=== PATIENT | male | born 1980 | race Caucasian/White ===

== ENCOUNTER 2017-09-03 09:25 | Emergency (ER) | payer MEDICAID ==
[~2017-09-03] VITALS: Ht 660.3 cm; Wt 80.0 kg
[2017-09-03 09:33] VITALS: BP 120/96
== END 2017-09-03 09:59 | disposition home or self-care (01) ==
LOC: ER 09:27
DX: K46.9 Unspecified abdominal hernia without obstruction or gangrene (principal)
CPT/HCPCS: 99281

== ENCOUNTER 2018-04-26 13:47 | Emergency (ER) | payer MEDICAID ==
[~2018-04-26] VITALS: Ht 188 cm; Wt 92.0 kg
[2018-04-26 14:05] VITALS: BP 150/82
== END 2018-04-26 14:52 | disposition home or self-care (01) ==
LOC: ER 13:47
DX: K40.90 Unilateral inguinal hernia, without obstruction or gangrene, not specified as recurrent (principal); G56.02 Carpal tunnel syndrome, left upper limb; Z98.890 Other specified postprocedural states
CPT/HCPCS: 99281

== ENCOUNTER 2018-07-22 22:18 | Emergency (ER) | payer MEDICAID ==
[~2018-07-22] VITALS: Ht 185.4 cm; Wt 84.4 kg
[2018-07-22 23:51] VITALS: BP 120/91
[2018-07-23] MEDS ORDERED: ketorolac trometh inj. 60 MG/2 ML VIAL IM ONE (00:15)
[2018-07-23] MEDS ORDERED: HYDROcodone/acetaminophen 5mg/325mg tablet PO ONE (00:15)
[2018-07-23] MEDS ORDERED: DICL50TA8 PO (00:17)
== END 2018-07-23 01:02 | disposition home or self-care (01) ==
LOC: ER 22:18
DX: S49.92XA Unspecified injury of left shoulder and upper arm, initial encounter (principal); Z79.899 Other long term (current) drug therapy; W22.8XXA Striking against or struck by other objects, initial encounter; Y93.64 Activity, baseball; Y92.89 Other specified places as the place of occurrence of the external cause; Y99.8 Other external cause status
CPT/HCPCS: 73030; 96372; 99283; J1885

== ENCOUNTER 2019-02-03 17:03 | Emergency (ER) | payer MEDICAID ==
[~2019-02-03] VITALS: Ht 188 cm; Wt 79.0 kg
[~2019-02-03 17:03] MED LIST: DICL50TA8 PO
[2019-02-03 17:04] VITALS: BP 136/77
[2019-02-03] MEDS ORDERED: acetaminophen 325mg tablet PO ONE (17:45)
[2019-02-03] MEDS ORDERED: PENI500T2 PO (18:52)
[2019-02-04] MEDS ORDERED: AZIT-63 PO (20:03)
[2019-02-04] MEDS ORDERED: ONDA4TAB6 PO (20:03)
[2019-02-04] MEDS ORDERED: NO HOME MEDS (22:17)
== END 2019-02-03 19:21 | disposition home or self-care (01) ==
LOC: ER 17:05
DX: J02.0 Streptococcal pharyngitis (principal); Z98.890 Other specified postprocedural states
CPT/HCPCS: 87880; 99283

== ENCOUNTER 2019-02-04 16:40 | Inpatient (IN) | payer MEDICAID ==
[~2019-02-04] VITALS: Ht 188 cm; Wt 77.8 kg
[~2019-02-04 16:40] MED LIST changes: +PENI500T2 PO
[2019-02-04 17:09] LABS: CLARITY,URINE SLIGHTLY CLOUDY (Clear); GLUCOSE, URINE NEGATIVE (Neg); KETONES,URINE 15 mg/dl (Neg); LEUKOCYTE ESTERASE ,URINE NEGATIVE (Neg); NITRITES, URINE NEGATIVE (Neg); OCCULT BLOOD,URINE NEGATIVE (Neg); PH,URINE 5.5 (4.8-8.0); PROTEIN,URINE 100 mg/dl (Neg)
[2019-02-04 17:12] LABS: COLOR,URINE DARK YELLOW (Yellow); UA COLLECTION TYPE CLN CATCH MIDSTREAM
[2019-02-04 17:22] LABS: BACTERIA,URINE FEW /HPF (Neg); MUCUS STRANDS MANY /LPF (Neg); RBC,URINE 0-2 /HPF (0-2); SQUAMOUS EPITHELIAL CELL,UR FEW /LPF (FEW); WBC,URINE 0-4 /HPF (0-4)
[2019-02-04 17:24] LABS: HYALINE CASTS 0-3 /LPF (NEGATIVE)
[2019-02-04 17:32] LABS: BASOPHILS % (AUTO) 0.2 % (0-1); EOSINOPHILS # (AUTO) 0.1 X10'3 (0-0.9); EOSINOPHILS % (AUTO) 0.3 % (0-6); HEMATOCRIT 44.1 % (42.0-52.0); HEMOGLOBIN 15.1 g/dl (14.0-17.9); LYMPHOCYTES # (AUTO) 0.6 X10'3 (1.1-4.8); LYMPHOCYTES % (AUTO) 2.5 % (21-51); MEAN CORPUSCULAR HEMOGLOBIN 32.1 PG (27.0-31.0); MEAN CORPUSCULAR HGB CONC 34.3 g/dL (33.0-36.5); MEAN CORPUSCULAR VOLUME 93.5 FL (78-98); MEAN PLATELET VOLUME 8.6 FL (7.4-10.4); MONOCYTES # (AUTO) 2.8 X10'3 (0-0.9); MONOCYTES % (AUTO) 11.4 % (2-12); NEUTROPHILS # (AUTO) 20.7 X10'3 (1.8-7.7); NEUTROPHILS % (AUTO) 85.6 % (42-75); PLATELET COUNT 213 X10'3 (140-440); RED BLOOD COUNT 4.72 X10'6 (4.70-6.10); RED CELL DISTRIBUTION WIDTH 13.2 % (11.5-14.5); WHITE BLOOD COUNT 24.2 X10'3 (4.5-11.0)
[2019-02-04 17:55] LABS: ALANINE AMINOTRANSFERASE 27 U/L (12-78); ALBUMIN 3.7 G/DL (3.4-5.0); ALBUMIN/GLOBULIN RATIO 0.9 (1.1-1.5); ALKALINE PHOSPHATASE 76 IU/L (46-116); ANION GAP 11 (8-16); ASPARTATE AMINO TRANSFERASE 17 U/L (10-37); BILIRUBIN,TOTAL 0.6 MG/DL (0.1-1.0); BLOOD UREA NITROGEN 14 MG/DL (7-18); BUN/CREATININE RATIO 13.1 (5.4-32.0); CALCIUM 9.1 MG/DL (8.5-10.1); CHLORIDE 99 MMOL/L (99-107); CREATININE 1.07 MG/DL (0.60-1.10); GLUCOSE 126 MG/DL (70-104); SODIUM 134 MMOL/L (135-145); TOTAL CARBON DIOXIDE 23.8 MMOL/L (24-32); TOTAL PROTEIN 7.9 G/DL (6.4-8.2); eGFR 77 ML/MIN
[2019-02-04] MEDS ORDERED: ondansetron/PF 4mg/2ml inj IM ONE (18:10)
[2019-02-04] MEDS ORDERED: normal saline 1000ml 1,000 ML IV ONE (18:10)
[2019-02-04] MEDS ORDERED: ondansetron/PF 4mg/2ml inj IV ONE ×2 (18:15→18:35)
[2019-02-04] MEDS ORDERED: normal saline 1000ML IV soln IVB ONE (18:35)
[2019-02-04 18:39] LABS: TOTAL CELLS COUNTED 100
[2019-02-04 18:40] LABS: PLATELET ESTIMATE NORMAL; TOXIC GRANULATION 1+; TOXIC VACUOLATION 3+
[2019-02-04 18:51] LABS: LIPASE 50 U/L (73-393)
[2019-02-04] MEDS ORDERED: loperamide 2mg capsule PO ONE (18:55)
[2019-02-04 19:23] LABS: URINE AMPHETAMINE SCREEN NEGATIVE (Neg); URINE BARBITUATE SCREEN NEGATIVE (Neg); URINE BENZODIAZEPINES SCREEN NEGATIVE (Neg); URINE CANNABINOID SCREEN POSITIVE (Neg); URINE COCAINE SCREEN NEGATIVE (Neg); URINE METHADONE SCREEN NEGATIVE (Neg); URINE OPIATE SCREEN NEGATIVE (Neg); URINE PHENCYCLIDINE SCREEN NEGATIVE (Neg)
--- NOTE | 2019-02-04 19:30 | NUR ---
PT WITH STABLE VS. MOTHER AT BEDISDE. PT SLEEPING INTERMITTENTLY. 2ND LITER NS BOLUS INFUSING. AWAITING UTOX AND CXR READ
[2019-02-04] MEDS ORDERED: ONDA4TAB6 PO (20:03)
[2019-02-04] MEDS ORDERED: AZIT-63 PO (20:03)
[2019-02-04] MEDS ORDERED: haloperidol lactate 5mg/ml inj IM ONE (20:10)
[2019-02-04] MEDS ORDERED: LORazepam 2 mg/ml vial IV ONE (20:10)
[2019-02-04] MEDS ORDERED: diphenhydrAMINE 50 mg/ml inj IV ONE (20:10)
[2019-02-04] MEDS ORDERED: CefTRIAXone 2gm/D5W 50ml 50 ML IV SCH (20:15)
[2019-02-04] MEDS ORDERED: morphine 2 MG/ML inj. syringe IV PRN ×2 (20:50)
[2019-02-04] MEDS ORDERED: ondansetron/PF 4mg/2ml inj IV PRN (20:50)
[2019-02-04] MEDS ORDERED: magnesium hydroxide 30ml (MOM) UD suspension PO PRN (20:50)
[2019-02-04] MEDS ORDERED: mag hydrox/Alum hydrox/simeth 30ml oral suspension PO PRN (20:50)
[2019-02-04] MEDS ORDERED: dextrose 5%-1/2 normal saline 1,000 ML IV SCH (20:50)
[2019-02-04] MEDS ORDERED: acetaminophen 325mg tablet PO PRN (20:50)
[2019-02-04] MEDS ORDERED: metoclopramide 5 mg/ml inj IV PRN (20:50)
--- NOTE | 2019-02-04 21:45 | NUR ---
Received report from ALLEN Hamm. Awaiting patient arrival to the floor.
[2019-02-04 21:50] VITALS: BP 154/89
--- NOTE | 2019-02-04 21:50 | NUR ---
Patient arrived to the floor via marilynrronald accompanied by Neda RN. Patient placed in room 340B. Alert and oriented, in no apparent distress. Mother at bedside. Call light and items of frequent use within reach. Will continue to monitor.
[2019-02-04] MEDS ORDERED: NO HOME MEDS (22:17)
[2019-02-05] VITALS (7 sets, daily range): BP systolic 107–141; BP diastolic 60–93
[2019-02-05 04:52] LABS: BASOPHILS # (AUTO) 0.1 X10'3 (0-0.2); BASOPHILS % (AUTO) 0.3 % (0-1); EOSINOPHILS % (AUTO) 0 % (0-6); PLATELET COUNT 192 X10'3 (140-440)
[2019-02-05 04:53] LABS: ANION GAP 8 (8-16); BLOOD UREA NITROGEN 10 MG/DL (7-18); BUN/CREATININE RATIO 8.7 (5.4-32.0); CHLORIDE 99 MMOL/L (99-107); CREATININE 1.15 MG/DL (0.60-1.10); GLUCOSE 115 MG/DL (70-104); HEMOGLOBIN 14.3 g/dl (14.0-17.9); LYMPHOCYTES # (AUTO) 1.1 X10'3 (1.1-4.8); LYMPHOCYTES % (AUTO) 5.2 % (21-51); MEAN CORPUSCULAR HEMOGLOBIN 32.2 PG (27.0-31.0); MEAN CORPUSCULAR HGB CONC 34.1 g/dL (33.0-36.5); MEAN CORPUSCULAR VOLUME 94.4 FL (78-98); MONOCYTES # (AUTO) 2.5 X10'3 (0-0.9); MONOCYTES % (AUTO) 12.1 % (2-12); NEUTROPHILS # (AUTO) 16.7 X10'3 (1.8-7.7); NEUTROPHILS % (AUTO) 82.4 % (42-75); POTASSIUM 3.9 MMOL/L (3.5-5.1); RED BLOOD COUNT 4.45 X10'6 (4.70-6.10); RED CELL DISTRIBUTION WIDTH 13.3 % (11.5-14.5); SODIUM 133 MMOL/L (135-145); TOTAL CARBON DIOXIDE 26.5 MMOL/L (24-32); WHITE BLOOD COUNT 20.3 X10'3 (4.5-11.0)
[2019-02-05 04:54] LABS: ALBUMIN 3.2 G/DL (3.4-5.0); CALCIUM 8.4 MG/DL (8.5-10.1); eGFR 71 ML/MIN
--- NOTE | 2019-02-05 06:30 | NUR ---
Patient in room [facility]. I have received report from Amrita VILLA and had the opportunity to ask questions and assume patient care.
--- NOTE | 2019-02-05 06:37 | NUR ---
Problems reprioritized. Patient report given, questions answered & plan of care reviewed with ALLEN Mcmahon.
[2019-02-05 07:49] LABS: PLATELET ESTIMATE NORMAL; TOTAL CELLS COUNTED 100
[2019-02-05] MEDS ORDERED: azithromycin 250mg tablet PO SCH (08:00)
[2019-02-05] MEDS ORDERED: magnesium 4gm in 100ml NS 100 ML IV PRN (08:45)
[2019-02-05] MEDS ORDERED: metroNIDAZOLE-Flagyl 500mg/NS 100 ML IV SCH (08:45)
[2019-02-05] MEDS ORDERED: magnesium Cl slow-release 64mg tablet PO PRN (08:45)
[2019-02-05] MEDS ORDERED: potassium CL 10mEq/100ml bag 100 ML IV PRN (08:45)
[2019-02-05] MEDS ORDERED: levoFLOXACIN-Levaquin 750MG/D5 150 ML IV SCH (08:45)
[2019-02-05] MEDS ORDERED: potassium Cl 20 mEq SR tablet PO PRN ×2 (08:45)
[2019-02-05] MEDS: dextrose 5%-normal saline 1,000 ML IV SCH ×2 (09:04→17:17)
[2019-02-05] MEDS ORDERED: FLU VACC QS2019-20 36MOS UP/PF 60 MCG/0.5 ML SYRINGE IMVAC ONE (09:30)
[2019-02-05] MEDS: HYDROcodone/acetaminophen 5mg/325mg tablet PO PRN ×2 (11:48→16:36)
[2019-02-05] MEDS ORDERED: LIDOcaine Viscous 15ml cup MM PRN (12:00)
[2019-02-05] MEDS: piperacillin/tazo 3.375gm/50ml 50 ML IV SCH ×2 (13:17→15:55)
--- NOTE | 2019-02-05 18:12 | NUR ---
Received report from ALLEN Mcmahon and had the opportunity to ask questions and assume patient care. Patient is awake and alert on room air, in no apparent distress. Call light and items of frequent use within reach. Will continue to monitor.
--- NOTE | 2019-02-05 18:24 | NUR ---
Problems reprioritized. Patient report given, questions answered & plan of care reviewed with Amrita VILLA.
[2019-02-05] MEDS ORDERED: LORazepam 2 mg/ml vial IV ONE (19:10)
[2019-02-05] MEDS: lactobacillus rhamnosus 10,000 MMU CELLS/CAPSULE PO SCH (19:29)
[2019-02-06] VITALS: BP 128/79
[2019-02-06] MEDS: piperacillin/tazo 3.375gm/50ml 50 ML IV SCH ×2 (00:11→09:20)
[2019-02-06] MEDS: HYDROcodone/acetaminophen 5mg/325mg tablet PO PRN (00:13)
[2019-02-06] MEDS: dextrose 5%-normal saline 1,000 ML IV SCH ×2 (00:19→08:45)
[2019-02-06 04:49] LABS: BASOPHILS % (AUTO) 0.3 % (0-1); EOSINOPHILS # (AUTO) 0.1 X10'3 (0-0.9); EOSINOPHILS % (AUTO) 0.6 % (0-6); HEMATOCRIT 41.9 % (42.0-52.0); HEMOGLOBIN 14.1 g/dl (14.0-17.9); LYMPHOCYTES # (AUTO) 1.5 X10'3 (1.1-4.8); LYMPHOCYTES % (AUTO) 14.8 % (21-51); MEAN CORPUSCULAR HEMOGLOBIN 32.1 PG (27.0-31.0); MEAN CORPUSCULAR HGB CONC 33.8 g/dL (33.0-36.5); MEAN CORPUSCULAR VOLUME 94.9 FL (78-98); MEAN PLATELET VOLUME 8.9 FL (7.4-10.4); MONOCYTES # (AUTO) 1.3 X10'3 (0-0.9); MONOCYTES % (AUTO) 12.1 % (2-12); NEUTROPHILS # (AUTO) 7.5 X10'3 (1.8-7.7); NEUTROPHILS % (AUTO) 72.2 % (42-75); PLATELET COUNT 215 X10'3 (140-440); RED BLOOD COUNT 4.41 X10'6 (4.70-6.10); RED CELL DISTRIBUTION WIDTH 13.3 % (11.5-14.5); WHITE BLOOD COUNT 10.4 X10'3 (4.5-11.0)
[2019-02-06 04:58] LABS: ALBUMIN 3.4 G/DL (3.4-5.0); ANION GAP 6 (8-16); BLOOD UREA NITROGEN 9 MG/DL (7-18); BUN/CREATININE RATIO 8.4 (5.4-32.0); CALCIUM 8.9 MG/DL (8.5-10.1); CHLORIDE 103 MMOL/L (99-107); CREATININE 1.07 MG/DL (0.60-1.10); GLUCOSE 98 MG/DL (70-104); MAGNESIUM 1.9 MG/DL (1.5-2.4); PHOSPHORUS 3.2 MG/DL (2.3-4.5); POTASSIUM 3.4 MMOL/L (3.5-5.1); SODIUM 140 MMOL/L (135-145); TOTAL CARBON DIOXIDE 30.9 MMOL/L (24-32); eGFR 77 ML/MIN
--- NOTE | 2019-02-06 06:12 | NUR ---
Problems reprioritized. Patient report given, questions answered & plan of care reviewed with ALLEN Mcmahon.
--- NOTE | 2019-02-06 06:49 | NUR ---
Patient in room [facility]. I have received report from KIM VILLA and had the opportunity to ask questions and assume patient care.
[2019-02-06 07:39] VITALS: BP 135/87
[2019-02-06] MEDS: lactobacillus rhamnosus 10,000 MMU CELLS/CAPSULE PO SCH (09:18)
[2019-02-06] MEDS ORDERED: LACT1CAP26 PO (09:46)
[2019-02-06] MEDS ORDERED: LIDO20SO16 MM (09:46)
[2019-02-06] MEDS ORDERED: AMOX-580 PO (09:51)
--- NOTE | 2019-02-06 11:00 | NUR ---
Patient discharged, IV taken out by resource nurse at time of discharge. Discharge took place with family in room, patient expressed verbal understanding of discharge instructions and new medication regime. Patient walked out of the hospital at time of discharge and medications escripted to dominga cho.
== END 2019-02-06 10:40 | disposition home or self-care (01) | DRG 720 ==
LOC: ER 16:41 → ED HOLD 21:02 → EDBEDREQ 21:20 → CMPBEDREQ 21:46 → SUR 3N 21:50 → OBSVTOIN 02-05 15:44
PROVIDERS: ADMIT Internal Medicine; ATTEND Family Medicine
DX: A41.9 Sepsis, unspecified organism (principal); A08.4 Viral intestinal infection, unspecified; F12.10 Cannabis abuse, uncomplicated; J02.0 Streptococcal pharyngitis; R11.14 Bilious vomiting; Z23 Encounter for immunization; Z71.51 Drug abuse counseling and surveillance of drug abuser
CPT/HCPCS: 36415; 71046; 80048; 80053; 80305; 81001; 83605; 83690; 83735; 84100; 84145; 85025; 87040; 87070; 87077; 87081; 87186; 93005; 96365; 96372; 96375; 99285; G0378; J0696; J1200; J1630; J2060; J2405; J2543; J7042; Q2037

== ENCOUNTER 2019-10-23 11:00 | Emergency (ER) | payer MEDICAID ==
[~2019-10-23] VITALS: Ht 218.4 cm; Wt 86.4 kg
[~2019-10-23 11:00] MED LIST changes: +AMOX-580 PO; -DICL50TA8 PO; +LACT1CAP26 PO; +LIDO20SO16 MM; -PENI500T2 PO
[2019-10-23 11:12] VITALS: BP 126/91
[2019-10-23] MEDS ORDERED: HYDROcodone/acetaminophen 5mg/325mg tablet PO ONE (11:30)
[2019-10-23] MEDS ORDERED: HYDR-4383 PO (11:37)
--- NOTE | 2019-10-23 12:29 | NUR ---
CHECKER STOCKER AT BEDSIDE
== END 2019-10-23 12:36 | disposition home or self-care (01) ==
LOC: ER 11:01
DX: S52.591A Other fractures of lower end of right radius, initial encounter for closed fracture (principal); M25.531 Pain in right wrist; M79.18 Myalgia, other site; M25.431 Effusion, right wrist; Z98.890 Other specified postprocedural states; Z79.2 Long term (current) use of antibiotics; Z79.899 Other long term (current) drug therapy; W19.XXXA Unspecified fall, initial encounter; Y93.89 Activity, other specified; Y92.89 Other specified places as the place of occurrence of the external cause; Y99.8 Other external cause status
CPT/HCPCS: 29125; 73110; 99283

== ENCOUNTER 2020-04-25 19:16 | Emergency (ER) | payer MEDICAID ==
[~2020-04-25] VITALS: Ht 185.4 cm; Wt 86.4 kg
[~2020-04-25 19:16] MED LIST changes: +HYDR-4383 PO
[2020-04-25] MEDS ORDERED: CEPH500C5 PO (20:16)
[2020-04-25 20:35] VITALS: BP 102/83
== END 2020-04-25 20:37 | disposition home or self-care (01) ==
LOC: ER 19:17
DX: L73.9 Follicular disorder, unspecified (principal); J02.9 Acute pharyngitis, unspecified; F12.90 Cannabis use, unspecified, uncomplicated; F15.90 Other stimulant use, unspecified, uncomplicated; Z72.89 Other problems related to lifestyle; Z79.899 Other long term (current) drug therapy
CPT/HCPCS: 99283

== ENCOUNTER 2023-09-11 22:36 | Emergency (ER) | payer MEDICAID ==
[~2023-09-11] VITALS: Ht 188 cm; Wt 90.5 kg
[2023-09-11] MEDS: LIDOcaine 1% W/epiNEPHrine 1:100,000 20ml vial IJ ONE (23:51)
[2023-09-12] MEDS: bacitracin 15gm ointment TP ONE (00:32)
[2023-09-12 00:36] VITALS: BP 107/76; PULSE 80; RESP 16; TEMP 98.3; O2SAT 96
== END 2023-09-12 00:38 ==
LOC: ER 22:37
DX: S61.511A Laceration without foreign body of right wrist, initial encounter (principal); F12.90 Cannabis use, unspecified, uncomplicated; F15.90 Other stimulant use, unspecified, uncomplicated; Z79.899 Other long term (current) drug therapy; Z79.2 Long term (current) use of antibiotics; Z98.890 Other specified postprocedural states; Z72.89 Other problems related to lifestyle; X58.XXXA Exposure to other specified factors, initial encounter; Y93.89 Activity, other specified; Y92.89 Other specified places as the place of occurrence of the external cause; Y99.8 Other external cause status
CPT/HCPCS: 12002; 99283

== ENCOUNTER 2024-08-13 08:01 | Outpatient (CLI) | payer MEDICAID ==
--- NOTE | 2024-08-14 05:57 | PROCEDURE NOTE ---
Procedure Note Providers to CC ~ Interpretation: [place] EEG Note # Demographics Type of EEG Read: - Routine EEG - video Patient Location: Outpatient First Name: Sameer Last Name: Lamin Date of : 1980 Age: 43 Gender: Male Facility: [facility] Time of Initial Page ([place] ): 08/13/2024 09:11 Time of Return Call ([place] Time): 08/13/2024 09:11 # EEG Interpretation Start Time of EEG Read ([place] ): 08/14/2024 08:32 Stop Time of EEG Read ([place] ): 08/14/2024 09:00 Duration: 0h 28m Technical Details: - The EEG electrodes were placed using the standard [employer] 10-20 system of electrode placement. Video and an accessory EKG lead were used during the course of this study. - This study was recorded using the [employer] EEG software Indication: - seizure # Description Photic Stimulation: NOT Performed Hyperventilation: NOT performed Phases Captured: - awake - drowsy Symmetry: symmetric Posterior Dominant Rhythm: - present, attenuates on eye opening 10.5Hz Predominant Frequencies: - posterior dominant alpha (8-12 Hz) - abundant (50-89%) Superimposed Frequencies: - theta (4-7 Hz) - rare (<1%) Amplitude: normal Reactivity: yes Variability: yes Continuity: continuous EKG: artifactual # Abnormalities Epileptiform Abnormalities: - NOT present Focal Slowing: no Seizure: - NOT present Artifact: Technically difficult study due to frequent movement artifact throughout the recording # Impression Impression: normal # Clinical Correlation Clinical Correlation: Technically difficult study due to frequent movement artifact throughout the recording. Outside of artifact and in the clearest portions of the recording, a normal awake and drowsy background is seen. A normal EEG does not exclude nor support the diagnosis of epilepsy. # Demographics First Name: Sameer Last Name: Lamin Facility: [facility] TRICIA ANTONIO MD August 14, 2024 05:56
== END 2024-08-13 23:59 | disposition home or self-care (01) ==
LOC: RAD 08:01
PROVIDERS: ATTEND Physician Assistant
DX: R56.9 Unspecified convulsions (principal)
CPT/HCPCS: 95816